=== PATIENT | male | born 1995 | race Hispanic/Latino ===

== ENCOUNTER 2017-04-27 16:30 | Emergency (ER) | payer BC ==
[2017-04-27 16:49] VITALS: BP 143/91; PULSE 71; RESP 18; TEMP 98; O2SAT 100
--- NOTE | 2017-04-27 17:29 | ED PDOC ---
Syncope/Near Syncope/Dizziness Time Seen by Provider: 04/27/17 16:53 Chief Complaint (Nursing): Syncope Chief Complaint (Provider): Syncope History Per: Patient, Family History/Exam Limitations: no limitations Onset/Duration Of Symptoms: Days (4x days) Current Symptoms Are (Timing): Better Activity At Onset Of Symptoms: Other (patient got angry, tried to resist anger) Associated Symptoms Preceding Syncopal Episode: Vertigo, Other (clamped feeling , dizziness, room spinning) Seizure Or Post-ictal Symptoms: None Fall Associated With With Symptoms: No Severity: Moderate Additional Complaint(s): 22 year old male with no pertinent medical history presents to the ED with complaints of syncopal episodes that started 4x days ago. He reports having 2 syncopal episodes in the past 4x days that both started when he got angry, when he tried to resist the anger, he got clamped and dizzy, and his family reports that he passed out for a few seconds (but the patient does not recall). He reports that the first time, he fell, but he did not fall today. The first time he got angry and had the syncopal episode, a witness states that there was no seizure activity, and the second time he got angry was because someone advised him to get marriage counseling (patient is a newlywed). He reported having symptoms of dizziness, room spinning, and headache after the syncopal episode, but states that they have since resolved, although he still has a mild headache. He denies having chest pain, nausea, vomiting, diarrhea, and dizziness (right now). PMD: Not provided. Past Medical History Reviewed: Historical Data, Nursing Documentation, Vital Signs Vital Signs: Last Vital Signs Temp 98.0 F 04/27/17 16:46 Pulse 71 04/27/17 16:46 Resp 18 04/27/17 16:46 BP 143/91 H 04/27/17 16:46 Pulse Ox 100 04/27/17 16:46 - Medical History PMH: No Chronic Diseases - Surgical History Surgical History: Tonsillectomy - Family History Family History: States: Diabetes, Hypertension (grandparents) Other Family History: migraines - Social History Current smoker - smoking cessation education provided: No Alcohol: None Drugs: Denies - Home Medications Home Medications: Ambulatory Orders Medication Instructions Recorded Ibuprofen [Motrin] 600 mg PO Q8 PRN #6 tab 05/31/15 No Other Home Meds 05/31/15 Cyclobenzaprine [Cyclobenzaprine 10 mg PO Q8H PRN #12 tab 05/30/16 HCl] Ibuprofen [Motrin Tab] 800 mg PO Q6H PRN #20 tab 05/30/16 - Allergies Allergies/Adverse Reactions: Allergies Allergy/AdvReac Type Severity Reaction Status Date / Time adhesive Allergy RASH Verified 08/07/16 22:51 Review of Systems ROS Statement: Except As Marked, All Systems Reviewed And Found Negative Constitutional: Negative for: Fever Cardiovascular: Negative for: Chest Pain Gastrointestinal: Negative for: Nausea, Vomiting, Abdominal Pain, Diarrhea Neurological: Positive for: Headache (headache at the time of syncopal episode, has since resolved), Dizziness (dizziness at the time of syncopal episode, has since resolved), Other (syncope, room spinning) Physical Exam - Reviewed Nursing Documentation Reviewed: Yes Vital Signs Reviewed: Yes - Physical Exam Appears: Positive for: Well, Non-toxic, No Acute Distress Head Exam: Positive for: ATRAUMATIC, NORMOCEPHALIC Skin: Positive for: Normal Color, Warm, Dry Eye Exam: Positive for: Normal appearance, EOMI, PERRL Cardiovascular/Chest: Positive for: Regular Rate, Rhythm Respiratory: Positive for: Normal Breath Sounds. Negative for: Respiratory Distress Neurologic/Psych: Positive for: Alert, selling manager II-XII (in tact), Oriented (3x), Cerebellar Tests (normal), Gait (steady). Negative for: Motor/Sensory Deficits - Laboratory Results Result Diagrams: 04/27/17 17:25 04/27/17 17:25 - ECG ECG Rhythm: Positive for: Normal QRS, Sinus Rhythm (normal sinus rhythm at 74 beats per minute). Negative for: ST/T Changes O2 Sat by Pulse Oximetry: 100 (RA) Pulse Ox Interpretation: Normal - CT Scan/US CT head w/o contrast Other Rad Studies (CT/US): Read By Radiologist, Radiology Report Reviewed (see MDM for findings) - Progress Re-evaluation Time: 19:24 Condition: Re-examined, Improved Medical Decision Making Medical Decision Makin:53 Initial impression: 22 year old male with syncope. Differential diagnoses include but are not limited to neurogenic cardiac arrhythmia, psychogenic cardiac arrhythmia, and mood disorder. Initial plan: * CT head w/o contrast * EKG * alcohol serum * BMP * drug screen urine * troponin I * CBC * reevaluation 18:48 CT head read and reviewed by radiologist. FINDINGS: Brain: No acute intracranial hemorrhage. No abnormal extra-axial fluid collection. No herniation. Patent basal cisterns. Preserved wesley-white matter differentiation. No evidence of acute ischemia. No evident intracranial mass. Ventricles: No hydrocephalus. Bones/joints: No evident acute fracture. Soft tissues: No acute findings. Sinuses: The imaged paranasal sinuses are clear. Mastoid air cells: The mastoid air cells are clear. Orbits: No evident acute abnormality of the intraorbital contents. IMPRESSION: No acute findings Scribe Attestation: Documented by Debora Rivera, acting as a scribe for Kandi Tineo MD Provider Scribe Attestation: All medical record entries made by the Scribe were at my direction and personally dictated by me. I have reviewed the chart and agree that the record accurately reflects my personal performance of the history, physical exam, medical decision making, and the department course for this patient. I have also personally directed, reviewed, and agree with the discharge instructions and disposition. Disposition - Clinical Impression Clinical Impression: Syncope - Patient ED Disposition Is Patient to be Admitted: No Doctor Will See Patient In The: Office Counseled Patient/Family Regarding: Studies Performed, Diagnosis, Need For Followup - Disposition Referrals: [facility] [Outside] Michelet Galeas MD [Staff Provider] - Disposition: Routine/Home Disposition Time: 19:24 Condition: GOOD Additional Instructions: Follow up with your PCP in 2-3 days. Instructions: Syncope (ED)
[2017-04-27 18:34] LABS: ALCOHOL SERUM < 10 mg/dl (0-10); BLOOD UREA NITROGEN 16 mg/dl (9-20); CALCIUM 9.9 mg/dL (8.4-10.2); CARBON DIOXIDE 29 mmol/L (22-30); CHLORIDE 102 mmol/L (98-107); GFR AFRICAN-AMERICAN > 60; GLUCOSE,RANDOM 85 mg/dL (75-110); POTASSIUM 3.8 MMOL/L (3.6-5.0); SODIUM 141 mmol/l (132-148)
[2017-04-27 19:15] LABS: BASO % 0.3 % (0.0-2.0); EOS # 0.1 K/uL (0.0-0.7); EOS % 1.1 % (0.0-4.0); HEMATOCRIT 41.5 % (35.0-51.0); LYMPH # 3.2 K/uL (1.0-4.3); LYMPH % 37.2 % (20.0-40.0); MEAN CELL VOLUME 83.6 fl (80.0-94.0); MEAN CORPUSCULAR HEMOGLOBIN 29.7 pg (27.0-31.0); MEAN CORPUSCULAR HGB CONC 35.5 g/dL (33.0-37.0); MEAN PLATELET VOLUME 8.3 fl (7.2-11.7); MONO # 0.6 K/uL (0.0-0.8); NEUT # 4.7 K/uL (1.8-7.0); NEUT % 54.4 % (50.0-75.0); NRBC % 0.1 % (0.0-0.0); RED CELL DISTRIBUTION WIDTH 12.4 % (11.5-14.5); WHITE BLOOD COUNT 8.6 K/uL (4.8-10.8)
--- NOTE | 2017-04-28 08:01 | CT ---
PROCEDURE: CT HEAD WITHOUT CONTRAST. HISTORY: syncope COMPARISON: None available. TECHNIQUE: Axial computed tomography images were obtained through the head/brain without intravenous contrast. Radiation dose: Total exam DLP = 864 mGy-cm. This CT exam was performed using one or more of the following dose reduction techniques: Automated exposure control, adjustment of the mA and/or kV according to patient size, and/or use of iterative reconstruction technique. FINDINGS: HEMORRHAGE: No intracranial hemorrhage. BRAIN: No mass effect or edema. Corticomedullary density appears normal above and below the tentorium including throughout the brainstem. VENTRICLES: Unremarkable. No hydrocephalus. CALVARIUM: Unremarkable. PARANASAL SINUSES: Unremarkable as visualized. No significant inflammatory changes. MASTOID AIR CELLS: Unremarkable as visualized. No inflammatory changes. OTHER FINDINGS: None. IMPRESSION: Normal CT of the Head.
--- NOTE | 2017-04-28 13:14 | CARD ---
APPROVED REPORT EKG Measurement Heart [id number] IN [id number] <Conclusion> Normal sinus rhythm with sinus arrhythmia Normal ECG
== END 2017-04-27 19:39 | disposition home or self-care (01) ==
LOC: H.ER 16:30
DX: R55 Syncope and collapse (principal); R42 Dizziness and giddiness
CPT/HCPCS: 70450; 80048; 82948; 84484; 85025; 93005; 99285; G0480